=== PATIENT | male | born 1960 | race Caucasian/White ===

== ENCOUNTER 2016-09-17 10:25 | Day surgery (SDC) | payer BC ==
[2016-09-12 13:39] VITALS: BMI 35.2
[~2016-09-17 10:25] MED LIST: LACTATED RINGERS 1,000 ML IV SCH; LIDOCAINE 1% 20 ML VIAL (10MG/ML) FOR IV START INTRADERMA PRN
[2016-09-17 10:41] VITALS: TEMP 97.6
[2016-09-17] MEDS ORDERED: LIDOCAINE 1% 20 ML VIAL (10MG/ML) FOR IV START INTRADERMA ONE (10:48)
[2016-09-17] MEDS ORDERED: LACTATED RINGERS 1,000 ML IV ONE (10:48)
[2016-09-17] MEDS ORDERED: LIDOCAINE 1% INJ 10MG/ML (20 ML MDV) ONE (11:33)
[2016-09-17] MEDS ORDERED: PROPOFOL 10 MG/ML 20 ML VIAL IV ONE (11:33)
[2016-09-17 12:05] VITALS: RESP 16
--- NOTE | 2016-09-17 12:05 | P.PCN ---
Date of Procedure: 09/17/16 Procedure(s) Performed: Procedure: Total colonoscopy. Preoperative diagnosis: Screening for neoplasia. Postoperative diagnosis: Sigmoid diverticulosis with no evidence of acute diverticulitis, strictures, polyps or cancer. Preparation: HalfLytely prep. Sedation: Was provided by anesthesia. Brief clinical history: The patient is a 55-year-old male who is referred for this evaluation for screening for neoplasia. His last exam was around 10 years ago and he may have had 2 or 3 other exams before that because of family history of colon cancer. The patient has no abdominal complaints, bleeding or anemia. Procedure: With the patient on his left lateral decubitus position and after informed consent and adequate sedation, the perianal area was inspected and it did not show any fissures or fistulas. There were no masses felt on digital rectal examination. The Olympus CFQ 160L video colonoscope was then inserted in the rectum in the usual fashion and advanced to the cecum. There were several diverticular orifices seen scattered in the sigmoid but I saw no evidence of acute diverticulitis or strictures. No polyps or tumors were seen. I retroflexed endoscope in the rectum before the endoscope was withdrawn. The patient tolerated the procedure well. Plan: The patient was reassured. Discussed dietary measures. With his family history, I recommended a repeat exam in 5 years. He will follow up with you as planned.
[2016-09-17 12:23] VITALS: BP 125/84; PULSE 64
== END 2016-09-17 12:34 | disposition home or self-care (01) ==
LOC: ORWHC2ENDO 10:25
DX: Z12.11 Encounter for screening for malignant neoplasm of colon (principal); K57.30 Diverticulosis of large intestine without perforation or abscess without bleeding; Z80.0 Family history of malignant neoplasm of digestive organs; I10 Essential (primary) hypertension; Z79.899 Other long term (current) drug therapy
CPT/HCPCS: J2001; J2704; G0121; 99153

== ENCOUNTER → 2021-08-07 | Outpatient (CLI) | payer OTHER ==
--- NOTE | 2021-08-07 14:53 | XR ---
EXAMINATION TYPE: XR foot complete LT DATE OF EXAM: 08/07/2021 CLINICAL HISTORY: pain TECHNIQUE: Frontal, lateral and oblique images of the left foot are obtained. COMPARISON: None. FINDINGS: There is no acute fracture/dislocation evident. The joint spaces appear within normal kirkpatrick its. The overlying soft tissue appears unremarkable. IMPRESSION: There is no acute fracture or dislocation. ICD 10 NO FRACTURE, INITIAL EVALUATION
--- NOTE | 2021-08-07 14:54 | XR ---
EXAMINATION TYPE: XR ankle complete LT, XR tibia fibula LT DATE OF EXAM: 08/07/2021 COMPARISON: NONE HISTORY: Pain TECHNIQUE: 3 views of the left ankle are submitted for evaluation. 2 views of the left tibia and fibu la are also submitted. FINDINGS: There is no evidence for acute fracture or dislocation. There is chronic appearing deformit y involving the medial malleolar tip. Ankle mortise is intact. Soft tissues are within normal limits. IMPRESSION: 1. No evidence for acute fracture.
== END | disposition home or self-care (01) ==
LOC: RADXRMAIN 14:18
PROVIDERS: ATTEND Emergency Medicine
DX: M79.672 Pain in left foot (principal); M25.572 Pain in left ankle and joints of left foot; M79.662 Pain in left lower leg

== ENCOUNTER → 2021-08-16 | Outpatient (CLI) | payer OTHER ==
--- NOTE | 2021-08-16 17:54 | XR ---
EXAMINATION TYPE: XR foot complete LT DATE OF EXAM: 08/16/2021 COMPARISON: 08/07/2021 HISTORY: Pain TECHNIQUE: 3 views FINDINGS: There are plantar and Achilles calcaneal spurs. Metatarsals appear intact. I see no fractur e nor dislocation. IMPRESSION: Calcaneal spurring. No fracture. No change.
--- NOTE | 2021-08-16 17:55 | XR ---
EXAMINATION TYPE: XR ankle complete LT DATE OF EXAM: 08/16/2021 COMPARISON: 08/07/2021 HISTORY: Pain TECHNIQUE: 3 views FINDINGS: Ankle mortise is anatomic. I see no fracture nor dislocation. There is some spurring at the medial malleolus. There is no sign of ankle joint effusion. IMPRESSION: Mild spurring. No fracture. No change.
== END | disposition home or self-care (01) ==
LOC: RADXRMAIN 17:17
PROVIDERS: ATTEND Emergency Medicine
DX: M77.32 Calcaneal spur, left foot (principal)

== ENCOUNTER → 2021-08-21 | Outpatient (CLI) | payer OTHER ==
--- NOTE | 2021-08-22 11:03 | MR ---
MRI left ankle HISTORY: Left ankle sprain, S93.402D, S86.112D Multiplanar multisequence imaging through the left ankle, correlation to plain film 08/16/2021 There is a plantar calcaneal spur. No evident fracture or dislocation. Bone marrow signal is maintain ed. There is fluid signal present along the flexor hallucis longus tendon posterior to the ankle join t suggesting tenosynovitis. The Achilles tendon is intact, however, there is abnormal thickening and abnormal increased internal signal present consistent with partial tear. Plantar aponeurosis is intac t. Articular cartilage signal is maintained, there is no evident tarsal coalition. Within the subcuta neous fat of the dorsum of foot there is some local fluid signal consistent with some soft tissue samantha ma, possible ecchymosis. No evident tendon tear. Fluid signal is present at the level of the volar as pect of the midfoot at the level of the tarsometatarsal joint of the fourth digit in close apposition to the flexor digitorum tendon measuring approximately 15 mm x 8 mm x 8 mm, somewhat dumbbell shape extending from the level of the joint, local ganglion cyst difficult to exclude. There is enthesophyt e at insertion of the Achilles tendon. There is some motion on exam, patient positioning not ideal. Spurring present at the medial malleolus and medial aspect of the talus at this level consistent with osteoarthritic change. Some minute ossi fic densities at this level, (sagittal image 15 thought likely to be well-corticated and nonacute. St ructures at the medial ankle joint are not well-defined, there is low signal present at this level, e valuation is limited, deltoid ligament and tibiocalcaneal ligaments not well seen, spring ligament no t well seen, possibly technical. Tarsal tunnel signal thought to be normal. IMPRESSION: Findings in the Achilles tendon may represent partial tear, there may be some associated calcification present. 2 synovitis of the flexor hallucis longus tendon. Additional findings above.
== END | disposition home or self-care (01) ==
LOC: RADMRIMAIN 09:24
PROVIDERS: ATTEND Emergency Medicine
DX: M65.872 Other synovitis and tenosynovitis, left ankle and foot (principal)

== ENCOUNTER → 2021-12-19 | Outpatient (CLI) | payer OTHER ==
--- NOTE | 2021-12-19 16:07 | NM ---
EXAMINATION TYPE: NM bone 3 phase DATE OF EXAM: 12/19/2021 COMPARISON: MRI left ankle 08/21/2021 and radiographs 08/16/2021 HISTORY: 60-year-old male ankle injury July, persistent pain. TECHNIQUE: Triple phase bone scintigraphy was performed following the injection of 22.4 mCi Tc 99m MD P. Immediate images, pool, and 5 hours post injection images acquired. Imaging was performed at the distal bilateral lower extremities. FINDINGS: There is slight asymmetric hyperemia to the left lower extremity. No abnormal asymmetric uptake ident ified on full images. Delayed images show some focal increased uptake along the lateral mid foot on the right. Some mild pa tchy changes at the ankle is symmetric from side to side. IMPRESSION: 1. Very slight asymmetric increased flow to the left lower extremity suggesting some hyperemia. 2. However, no corresponding discrete increased tracer activity to the distal left lower extremity on pool or delayed images. 3. There is some increased delayed activity along the lateral aspect of the right midfoot. In the abs ence of any focal pain, this is of questionable clinical significance. It may be on a degenerative ba sis.
== END | disposition home or self-care (01) ==
LOC: RADNMMAIN 07:13
PROVIDERS: ATTEND Orthopaedic Surgery Foot and Ankle Surgery
DX: M25.572 Pain in left ankle and joints of left foot (principal); M25.672 Stiffness of left ankle, not elsewhere classified; R26.2 Difficulty in walking, not elsewhere classified
CPT/HCPCS: 78315; A9503

== ENCOUNTER → 2022-02-17 | Outpatient (CLI) | payer OTHER ==
--- NOTE | 2022-02-18 04:58 | MR ---
EXAMINATION TYPE: MR ankle LT wo con DATE OF EXAM: 02/17/2022 COMPARISON: 08/21/2021 HISTORY: Left ankle lateral pain moving to top of foot since 2020, history of surgery. Multiplanar multiecho imaging of the left ankle performed with no contrast. Ankle mortise is anatomic. There is some thickening of the Achilles tendon with some linear increased signal. Plantar fascia is intact. Subtalar joint is intact. There is mild ankle joint effusion. Medi al and lateral flexor tendons of the ankle appear intact. There is some fluid around the medial flexo r tendons. The collateral ligaments appear intact. No evidence of focal bone destruction. No fracture seen. There is plantar and Achilles calcaneal spurring. I see no evidence of bone edema. IMPRESSION: There is a mild ankle joint effusion and fluid around the medial flexor tendons. This is consistent w ith some mild synovitis. Calcaneal spurring. No significant change compared to old exam. There is vanessa e chronic thickening of the Achilles tendon similar to last exam and consistent with partial tear.
== END | disposition home or self-care (01) ==
LOC: RADMRIMAIN 07:18
PROVIDERS: ATTEND Physical Medicine & Rehabilitation
DX: M77.32 Calcaneal spur, left foot (principal)